=== PATIENT | female | born 1935 | race Caucasian/White ===

== ENCOUNTER 2017-05-16 22:50 | Observation (INO) | payer OTHER ==
[~2017-05-16] VITALS: Ht 154.9 cm; Wt 66.0 kg
[~2017-05-16 22:50] MED LIST: ALENDRONATE SOD70 MG PO; AMARYL2 MG PO; ATORVASTATIN 20 PO; Amaryl PO; CIPRO500 MG PO; Exforge 10/320 PO; Fosamax PO; Glucophage PO; HYDROCHLOROTHIA25 MG PO; Hydrodiuril,Oretic,E PO; METFORMIN HCL500 MG PO; PriLOSEC OTC PO
[2017-05-16 23:42] LABS: HEMATOCRIT 33.8 % (36.0-46.0); MCH 28.7 PG (29.0-34.0); MCHC 32.2 G/DL (30.0-36.0); MCV 88.9 FL (83-99); MEAN PLAT.VOLUME 10.7 uM^3 (9.5-12.4); PLATELET COUNT 100 K/uL (156-360); RBC DIS.WIDTH-CV 15.7 % (11.8-14.6); RBC DIS.WIDTH-SD 51.6 % (39-53); WHITE BLOOD COUNT 6.1 K/uL (4.1-10.2)
[2017-05-16 23:47] LABS: PROTHROMBIN TIME 10.6 SEC (10.2-12.9)
[2017-05-16 23:49] LABS: D-DIMER ELISA < 150.00 ng/mLDDU (<230)
[2017-05-16 23:50] LABS: PTT 33.8 SEC (25-37)
[2017-05-16 23:53] LABS: CHLORIDE 106 mEq/L (99-109); POTASSIUM 3.4 mEq/L (3.7-5.4); SODIUM 140 mEq/L (136-147)
[2017-05-16 23:55] LABS: GLUCOSE 244 mg/dL (70-99)
[2017-05-16 23:56] LABS: ANION GAP 9 MEQ/L (2-14)
[2017-05-16 23:57] LABS: TOTAL BILIRUBIN 0.5 mg/dL (0.0-1.0)
[2017-05-16 23:58] LABS: ALKALINE PHOSPHATASE 77 IU/L (3-129)
[2017-05-16 23:59] LABS: GFR ESTIMATE (CALCULATED) 42 mL/min/
[2017-05-17] LABS: UREA NITROGEN (BUN) 27 mg/dL (9-23)
[2017-05-17 00:02] LABS: TROP-I INTERPRETATION NEGATIVE; TROPONIN-I 0.02 ng/mL (0.0-0.30)
[2017-05-17 00:02] LABS: LIPASE 20 U/L (1.0-51.0)
[2017-05-17 00:14] LABS: ADD MIUA? NO; BILIRUBIN NEGATIVE; BLOOD NEGATIVE; COLOR STRAW ((YELLOW)); GLUCOSE (STRIP) 150; KETONES NEGATIVE; LEUKOCYTES NEGATIVE; NITRITE NEGATIVE; PROTEIN (STRIP) NEGATIVE; SPECIFIC GRAVITY 1.008 (1.000-1.030); UCUL ADDED? NO; UROBILINOGEN 0.2 MG/DL (0.2-1.0)
[2017-05-17] MEDS ORDERED: LEVEMIR FL100 UNIT/1 SC (00:22)
[2017-05-17] MEDS ORDERED: AMARYL2 MG PO (00:27)
[2017-05-17] MEDS ORDERED: METOPROLOL SUCC25 MG PO (00:28)
[2017-05-17] MEDS ORDERED: AZOR 5/40 MG1 TABLET PO (00:29)
[2017-05-17] MEDS ORDERED: ALLOPURINOL300 MG PO (00:29)
[2017-05-17] MEDS ORDERED: FOLIC ACID1 MG PO (00:30)
[2017-05-17] MEDS ORDERED: VITAMIN B12-FO1 EACH PO (00:31)
[2017-05-17] MEDS ORDERED: RED YEAST RICE600 MG PO (00:31)
[2017-05-17] MEDS ORDERED: TYLENOL EXTRA500 MG PO (00:49)
[2017-05-17 04:10] VITALS: BP 146/78
[2017-05-17 06:54] LABS: TROP-I INTERPRETATION NEGATIVE; TROPONIN-I < 0.01 ng/mL (0.0-0.30)
[2017-05-17 07:45] VITALS: BP 148/67
[2017-05-17 08:08] LABS: POINT-OF-CARE METER ID UU13113700
[2017-05-17 12:27] LABS: POINT-OF-CARE METER ID UU13113700
[2017-05-17 12:49] VITALS: BP 159/73
[2017-05-17 13:29] LABS: TROP-I INTERPRETATION NEGATIVE; TROPONIN-I 0.02 ng/mL (0.0-0.30)
== END 2017-05-17 14:42 | disposition home or self-care (01) ==
LOC: EME 22:50 → EDOF 05-17 01:52 → ENRESERV 05-17 01:57 → 5WEST 05-17 03:55
PROVIDERS: Emergency Medicine; Hospitalist
DX: R00.2 Palpitations (principal); R20.2 Paresthesia of skin; I10 Essential (primary) hypertension; E87.6 Hypokalemia; E86.0 Dehydration; I35.0 Nonrheumatic aortic (valve) stenosis; I16.0 Hypertensive urgency; I25.10 Atherosclerotic heart disease of native coronary artery without angina pectoris; E11.9 Type 2 diabetes mellitus without complications; D64.9 Anemia, unspecified; Z85.42 Personal history of malignant neoplasm of other parts of uterus; Z79.4 Long term (current) use of insulin; Z79.84 Long term (current) use of oral hypoglycemic drugs; Z92.21 Personal history of antineoplastic chemotherapy; Z90.710 Acquired absence of both cervix and uterus; Z90.49 Acquired absence of other specified parts of digestive tract
CPT/HCPCS: 70450; 71020; 80053; 81003; 82948; 83690; 83735; 84100; 84443; 84484; 85027; 85379; 85610; 85730; 93005; 99281; 99284; G0378; J1644; J1815; J7030